=== PATIENT | male | born 1970 | race Caucasian/White ===

== ENCOUNTER 2022-11-17 00:43 | Day surgery (SDC) | payer OTHER, SELFPAY ==
[2022-11-04 10:24] VITALS: BMI 26.5
[2022-11-17 07:15] VITALS: BP 135/99; PULSE 83; RESP 18; TEMP 36.2; O2SAT 100; BMI 26.6
[2022-11-17] MEDS: LACTATED RINGERS 1,000 ML 150 ML IV CONT (07:25)
--- NOTE | 2022-11-17 07:44 | P.PNAN_ITS ---
Anes - Initial Pre Proc Eval Procedure: Operation Date: 11/17/22 08:00 Proposed Procedures p Screening Colonoscopy - Lucas Marcano MD Date/Time: 11/17/22 07:44 Surgeon: Lucas Marcano MD Pre Op Diagnosis: neoplasm screening Patient Data Age: 52 Gender: M Height: 1.78 m Weight: 84.4 kg Last Vital Signs Temp 97.1 F L 11/17/22 07:15 Pulse 83 11/17/22 07:15 Resp 18 11/17/22 07:15 BP 135/99 H 11/17/22 07:15 Pulse Ox 100 11/17/22 07:15 O2 Del Method Room Air 11/17/22 07:15 Allergies Allergy/AdvReac Type Severity Reaction Status Date / Time azithromycin Allergy Other Verified 11/17/22 07:14 Home Medications Medication Instructions Recorded Confirmed Type losartan 100 mg tablet 100 mg PO DAILY 11/04/22 11/17/22 History Patient hx anesthesia problems: none Family hx anesthesia problems: none Results Review: All pre-operative results and documents have been reviewed as part of the pre- operative evaluation. [facility] Social History Social History Smoking status: Never smoker Alcohol intake: current Drinks per week: 15 Substance use type: does not use Living arrangements: with family Spiritual care concerns: No Anes - Eval Final PreProcedure Day of Procedure 11/17/22 07:44 Patient weight: overweight Heart: regular rate and rhythm Lungs: clear to auscultation Airway: Mallampati scale class II Neurological: alert and oriented Last oral intake: >/= 8 hours ASA classification: II Emergent: no Anesthetic plan: proceed Anesthesia type and monitoring: general GIVS and standard monitoring Results Review: All pre-operative results and documents have been reviewed as part of the pre- operative evaluation. Informed Consent: The patient's anesthetic plan and its attendant risks and benefits were discussed with the patient/family/POA. Questions were solicited and answers provided to the satisfaction of the patient/family/POA.
--- NOTE | 2022-11-17 07:59 | P.HP_ITS ---
History of Present Illness History of Present Illness Consent: Risks, benefits, and alternatives have been discussed and questions answered. Patient agrees to proceed with procedure. Chief complaint: neoplasm screening Narrative: Gallo Bruce is a 52 year old male Presents today for screening colonoscopy. Patient's current weight appetite bowel movements are normal. Patient denies abdominal pain. He has had no bleeding. Family history noncontributory. Pat shasha presents today for screening colonoscopy Review of Systems Review of Systems: review of systems noncontributory. [facility] Social History Social History Smoking status: Never smoker Alcohol intake: current Drinks per week: 15 Substance use type: does not use Living arrangements: with family Spiritual care concerns: No Meds Home Medications and Allergies Home Medications Medication Instructions Recorded Confirmed Type losartan 100 mg tablet 100 mg PO DAILY 11/04/22 11/17/22 History Allergies Allergy/AdvReac Type Severity Reaction Status Date / Time azithromycin Allergy Other Verified 11/17/22 07:14 Vital Signs Vital Signs - 24 hr 11/17/22 07:15 Temperature 97.1 F L Pulse Rate 83 Respiratory Rate 18 Blood Pressure 135/99 H Pulse Oximetry 100 Oxygen Delivery Room Air Exam Narrative: Physical exam reveals patient to be alert. Vital signs stable. HEENT exam is unremarkable. Patient is anicteric. Lungs are clear to auscultation and percussion. Heart is without murmur or extra sounds. Abdomen bowel sounds are present soft nontender with no hepatosplenomegaly. Digital external rectal exam normal. Assessment and Plan Assessment and plan (1) Encounter for screening colonoscopy: Code(s): Z12.11 - Encounter for screening for malignant neoplasm of colon Status: Acute Assessment and Plan: Patient presents today for screening colonoscopy. Plan colonoscopy to be performed today further recommendations may be given after endoscopy.
[2022-11-17] MEDS: SIMETHICONE ORAL SUSPENSION 20 MG/0.3 ML 30 ML BOTTLE 0.6 ML IRRIGATION (08:15)
[2022-11-17 08:25] VITALS: BP 112/66; PULSE 77; RESP 18; O2SAT 98
[2022-11-17 08:35] VITALS: BP 115/77; PULSE 70; RESP 18; O2SAT 98
[2022-11-17 08:45] VITALS: BP 145/88; PULSE 74; RESP 16; O2SAT 100
== END 2022-11-17 08:54 | disposition home or self-care (01) ==
PROVIDERS: PCP Family Medicine; Visit Provider Internal Medicine Gastroenterology
PROC: 0DJD8ZZ Inspection of Lower Intestinal Tract, Via Natural or Artificial Opening Endoscopic (ICD-10-PCS; CPT 45378; principal; 2022-11-17 08:00)
DX: Z12.11 Encounter for screening for malignant neoplasm of colon (principal); D12.3 Benign neoplasm of transverse colon
CPT/HCPCS: 45385; 88305; J2704; J7120